=== PATIENT | female | born 1955 | race Caucasian/White ===

== ENCOUNTER 2019-06-14 10:56 | Outpatient (CLI) | payer MEDICARE ==
--- NOTE | 2019-06-14 15:41 | XRAY Report ---
Reason: CHRONIC RIGHT HIP PAIN Procedure Date: 06/14/2019 Accession Number: [id number] / [id number] Procedure: XR - Hip w/Pelvis 2-3V RT CPT Code: FULL RESULT: EXAM: RIGHT HIP RADIOGRAPHY EXAM DATE: 06/14/2019 11:38 AM. CLINICAL HISTORY: Chronic right hip pain. COMPARISON: None. TECHNIQUE: 2 views. FINDINGS: Bones: Normal. No fractures or bone lesion. Joints: Mild narrowing of the right hip joint space. Mild subchondral sclerotic changes of the acetabulum. Soft Tissues: Normal. No soft tissue swelling. IMPRESSION: Mild degenerative changes at the right hip. RADIA
== END 2019-06-14 10:57 | disposition home or self-care (01) ==
LOC: DI 10:56
PROVIDERS: ATTEND Family Medicine
DX: M16.11 Unilateral primary osteoarthritis, right hip (principal)

== ENCOUNTER 2019-11-27 07:05 | Outpatient (CLI) | payer MEDICARE ==
--- NOTE | 2019-11-27 08:38 | MRI Report ---
Reason: RT HIP PAIN Procedure Date: 11/27/2019 Accession Number: [id number] / [id number] Procedure: MRI - Hip RT W/O CPT Code: Final Report FULL RESULT: EXAM: RIGHT HIP MRI WITHOUT CONTRAST EXAM DATE: 11/27/2019 07:38 AM. CLINICAL HISTORY: Right groin and hip pain. COMPARISON: HIP W/PELVIS radiography 2-3V RT 06/14/2019 11:27 AM. TECHNIQUE: Multiplanar, multisequence T1-weighted and fluid-sensitive, small ofgqg-ym-ohmd sequences of the hip and large roopc-kt-bwgr sequences of the pelvis without contrast. Other: None. FINDINGS: Bones: There are subcortical cysts at the anterosuperior and anterior aspects of the right acetabulum. No acute fracture or osteonecrosis. Right Hip: No acetabular retroversion. Femoral head/neck offset is within normal limits. No effusion or loose bodies. 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 The labrum is unremarkable on this nonarthrographic study. The ligamentum teres is intact. Other Joints: Degenerative changes at the visualized lower lumbar spine. The sacroiliac joints are unremarkable. The pubic symphysis and left hip are unremarkable. Musculature: No edema or fatty atrophy. The gluteus medius and minimus tendons are normal. The visualized hamstring tendons are normal. The ischiofemoral space is normal. Pelvic Cavity: There is an approximately 3.1 x 1.7 cm submucosal fibroid at the left side of the uterine body. No lymphadenopathy or free fluid. Other: The visualized sciatic nerves are unremarkable. No bursitis. The subcutaneous tissues are unremarkable. IMPRESSION: 1. Degenerative subcortical cysts at the right acetabulum. 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 2. Degenerative changes of the visualized lower lumbar spine. 3. Incidental finding of a 3.1 x 1.7 cm submucosal uterine fibroid. RADIA
== END 2019-11-27 07:06 | disposition home or self-care (01) ==
LOC: DI 07:05
PROVIDERS: ATTEND Family Medicine
DX: M94.251 Chondromalacia, right hip (principal); M85.68 Other cyst of bone, other site; M47.816 Spondylosis without myelopathy or radiculopathy, lumbar region

== ENCOUNTER 2022-11-30 09:44 | Outpatient (CLI) | payer MEDICARE ==
--- NOTE | 2022-11-30 13:23 | XRAY Report ---
PROCEDURE: Foot 3 View RT INDICATIONS: UNSPECIFIED FRACTURE OF RIGHT FOOT TECHNIQUE: 3 views of the foot were acquired. COMPARISON: None FINDINGS: Bones: No fractures or dislocations. Osteoarthritic changes are noted throughout the right foot more notably at TMT joints and MTP joints. Old injury involving lateral aspect of fifth metatarsal base i s seen with well corticated calcified fragments. No suspicious bony lesions. Soft tissues: Significant dorsal right foot soft tissue swelling over metatarsal bone is seen. No ti biotalar joint effusion. Achilles tendon appears normal. IMPRESSION: Dorsal midfoot soft tissue swelling over the metatarsal bones. No acute fracture or dislocation. Mild right foot osteoarthritis. Reviewed by: Justo Ng MD on 11/30/2022 1:21 PM PST Approved by: Justo Ng MD on 11/30/2022 1:21 PM PST Station ID: [id number]
== END 2022-11-30 09:45 | disposition home or self-care (01) ==
LOC: DI 09:44
PROVIDERS: ATTEND Physician Assistant Medical
DX: M19.071 Primary osteoarthritis, right ankle and foot (principal); R22.41 Localized swelling, mass and lump, right lower limb

== ENCOUNTER 2022-12-05 14:03 | Emergency (ER) | payer MEDICARE ==
[2022-12-05 14:13] VITALS: BP 160/88
--- NOTE | 2022-12-05 14:21 | ED Physician Documentation ---
PD HPI LOWER EXT INJURY - Stated complaint Stated Complaint: R FOOT INJ - Chief complaint Chief Complaint: Ext Problem - History obtained from History obtained from: Patient - Additional information Additional information: About a week ago a table dropped on her right foot. She was seen in the clinic and had negative x-rays but still has severe pain with impressive swelling. She is worried because she is scheduled to have the opposite hip replaced in a week or so and is curious as to how this will affect her operative timing. PD PAST MEDICAL HISTORY - Past Medical History Cardiovascular: None Respiratory: Sleep apnea Endocrine/Autoimmune: None GI: None : Frequency Psych: Depression Musculoskeletal: Osteoarthritis Derm: None - Present Medications Home Medications: Ambulatory Orders Medication Instructions Recorded Confirmed Ibuprofen 800 mg PO DAILY 09/03/14 09/03/14 - Allergies Allergies/Adverse Reactions: Allergies Allergy/AdvReac Type Severity Reaction Status Date / Time alendronate sodium Allergy Rash Verified 12/05/22 14:11 [From Fosamax] PD ED PE NORMAL - Vitals Vital signs reviewed: Yes - General General: Alert and oriented X 3, No acute distress - Extremities Extremities: Other (There is impressive bruising and swelling over the mid dorsal foot with tenderness. Dependent ecchymosis down into the toes and up into the ankle. Normal cap refill.) - Neuro Neuro: Alert and oriented X 3, Normal speech Results - Vitals Vitals: Vital Signs - 24 hr 12/05/22 14:11 Temperature 36.8 C Heart Rate 78 Respiratory 16 Rate Blood Pressure 160/88 H O2 Saturation 98 Oxygen O2 Source Room air - Rads (name of study) CT of the right foot demonstrates dorsal soft tissue hematoma and fragmentation at the base of the fifth metatarsal which appears old. Radiology: Final report received, EMP read indepedently PD Medical Decision Making - ED course ED course: 67-year-old woman with impressive tenderness and swelling of the dorsum of the foot after an x-ray with negative findings from the walk-in clinic. CT imaging was done and showed hematomas but no fractures. No clinical evidence of infection. She is mostly worried because she is due to have her hip replaced in a little over a week on the opposite side and this may affect her operative time course. Departure - Departure Disposition: 01 Home, Self Care Clinical Impression: Hematoma of right foot Contusion of right foot Qualifiers: Encounter type: initial encounter Qualified Code(s): S90.31XA - Contusion of right foot, initial encounter Condition: Good Record reviewed to determine appropriate education?: Yes Instructions: ED Hematoma Comments: Elevate as much as possible. Tylenol and/or ibuprofen as needed for pain and inflammation. Follow-up with your orthopedic surgeon regarding operative timing for your hip. Return if worse. Discharge Date/Time: 12/05/22 16:09
--- OUTSIDE RECORDS SUMMARY | 2022-12-05 14:42 | EXTERNAL MEDICAL SUMMARY RPT | Continuity of Care Document ---
:1955 Author Organization [facility] Address [address] [place] [address] Phone Allergies No information. Encounters No information. Functional Status No information. Immunizations No information. Medications No information. Problems date description facility 2022-09-11 15:28 Urinary tract infection, site not [facility] 2022-09-11 15:28 Hyperglycemia, unspecified [facility] 2022-09-11 15:28 [facility] 2022-09-11 15:28 [facility] 2022-09-11 15:45 Urinary tract infection, site not [facility] 2022-09-11 15:45 Hyperglycemia, unspecified [facility] 2022-09-11 15:45 Encounter for preprocedural [facility] examination 2022-09-11 15:45 [facility] 2022-09-11 15:47 Urinary tract infection, site not [facility] 2022-09-11 15:47 Hyperglycemia, unspecified [facility] 2022-09-11 15:[facility] Procedures No information. Results/Labs test date author facility value unit interpret ation Result panel 1 (unknown) (no date) (unknown) (unknown) 1.3 % (unkn own) (unknown) (no date) (unknown) (unknown) 100 /ul (unkn own) (unknown) (no date) (unknown) (unknown) 13.1 g/dl (unkn own) (unknown) (no date) (unknown) (unknown) 13.6 % (unkn own) (unknown) (no date) (unknown) (unknown) 1300 /ul (unkn own) (unknown) (no date) (unknown) (unknown) 200 /ul (unkn own) (unknown) (no date) (unknown) (unknown) 216 x10 3/ul (unkn own) (unknown) (no date) (unknown) (unknown) 22.7 % (unkn own) (unknown) (no date) (unknown) (unknown) 29.6 pg (unkn own) (unknown) (no date) (unknown) (unknown) 3.1 % (unkn own) (unknown) (no date) (unknown) (unknown) 33.1 % (unkn own) (unknown) (no date) (unknown) (unknown) 39.7 % (unkn own) (unknown) (no date) (unknown) (unknown) 3900 /ul (unkn own) (unknown) (no date) (unknown) (unknown) 4.44 x10 6/ul (unkn own) (unknown) (no date) (unknown) (unknown) 400 /ul (unkn own) (unknown) (no date) (unknown) (unknown) 5.9 x10 3/ul (unkn own) (unknown) (no date) (unknown) (unknown) 6.6 % (unkn own) (unknown) (no date) (unknown) (unknown) 66.3 % (unkn own) (unknown) (no date) (unknown) (unknown) 89.5 fl (unkn own) Result panel 2 (unknown) (no date) (unknown) (unknown) > 60 ml/min (unkn own) (unknown) (no date) (unknown) (unknown) > 60 ml/min (unkn own) (unknown) (no date) (unknown) (unknown) 0.78 mg/dl (unkn own) (unknown) (no date) (unknown) (unknown) 105 mmol/l (unkn own) (unknown) (no date) (unknown) (unknown) 139 mmol/l (unkn own) (unknown) (no date) (unknown) (unknown) 26 mg/dl (unkn own) (unknown) (no date) (unknown) (unknown) 28 mmol/l (unkn own) (unknown) (no date) (unknown) (unknown) 33.3 (units unknown) (unknown) (unknown) (no date) (unknown) (unknown) 4.0 mmol/l (unkn own) (unknown) (no date) (unknown) (unknown) 4.9 % (unkn own) (unknown) (no date) (unknown) (unknown) 4.9 % (unkn own) (unknown) (no date) (unknown) (unknown) 8.6 mg/dl (unkn own) (unknown) (no date) (unknown) (unknown) 94 mg/dl (unkn own) (unknown) (no date) (unknown) (unknown) 94 mg/dl (unkn own) Result panel 3 (unknown) (no date) (unknown) (unknown) 0.2 e.u./dl (unkn own) (unknown) (no date) (unknown) (unknown) 1.025 (units (unkn own) unknown) (unknown) (no date) (unknown) (unknown) 6.0 (units (unkn own) unknown) (unknown) (no date) (unknown) (unknown) CLEAR (units (unkn own) unknown) (unknown) (no date) (unknown) (unknown) NEGATIVE (units (unkn own) unknown) (unknown) (no date) (unknown) (unknown) NEGATIVE g/dl (unkn own) (unknown) (no date) (unknown) (unknown) TRACE (units (unkn own) unknown) (unknown) (no date) (unknown) (unknown) YELLOW (units (unkn own) unknown) (unknown) (no date) (unknown) (unknown) YELLOW (units (unkn own) unknown) Result panel 4 (unknown) (no date) (unknown) (unknown) 0-1/HPF (units (unkn own) unknown) (unknown) (no date) (unknown) (unknown) 0.2 e.u./dl (unkn own) (unknown) (no date) (unknown) (unknown) 1-5 /HPF (units (unkn own) unknown) (unknown) (no date) (unknown) (unknown) 1.025 (units (unkn own) unknown) (unknown) (no date) (unknown) (unknown) 6.0 (units (unkn own) unknown) (unknown) (no date) (unknown) (unknown) CLEAR (units (unkn own) unknown) (unknown) (no date) (unknown) (unknown) Cult Not (units (unkn own) Indicated unknown) (unknown) (no date) (unknown) (unknown) NEGATIVE (units (unkn own) unknown) (unknown) (no date) (unknown) (unknown) NEGATIVE g/dl (unkn own) (unknown) (no date) (unknown) (unknown) None Seen (units (unk nown) unknown) (unknown) (no date) (unknown) (unknown) None Seen (units (unk nown) unknown) (unknown) (no date) (unknown) (unknown) TRACE (units (unkn own) unknown) (unknown) (no date) (unknown) (unknown) YELLOW (units (unkn own) unknown) (unknown) (no date) (unknown) (unknown) YELLOW (units (unkn own) unknown) Social History No information. Vital Signs No information.
--- NOTE | 2022-12-05 15:56 | CT Report ---
PROCEDURE: LOWER EXTREMITY WO - LT INDICATIONS: R foot injury, neg xr TECHNIQUE: Noncontrast 3-mm axial sections acquired from the distal tibial shaft to the talar dome, with coronal and sagittal reformats. For radiation dose reduction, the following was used: automated exposure c ontrol, adjustment of mA and/or kV according to patient size. COMPARISON: None. FINDINGS: Normal bone mineralization. Dorsal hyperdense soft tissue swelling probably reflects soft tissue caridad walt. No underlying fracture present. Joint spaces are maintained. 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
== END 2022-12-05 16:09 | disposition home or self-care (01) ==
LOC: ED 14:03
DX: S90.31XA Contusion of right foot, initial encounter (principal); W20.8XXA Other cause of strike by thrown, projected or falling object, initial encounter
CPT/HCPCS: 99283